=== PATIENT | female | born 1960 | race African-American/Black ===

== ENCOUNTER 2017-09-21 11:09 | Emergency (ER) | payer MEDICAID ==
[~2017-09-21] VITALS: Ht 152.4 cm; Wt 73.9 kg
[2017-09-21 11:18] VITALS: BP 144/102
[2017-09-21] MEDS ORDERED: KETOROLAC TROMETH 60MG/2ML VIAL IM ONE (11:30)
[2017-09-21 11:51] LABS: Basophils # (auto) 0 uL; Basophils % (auto) 0.3 % (0.0-2.0); Eosinophils # (auto) 0.1 uL; Eosinophils % (auto) 0.8 % (0.0-7.0); Hematocrit 44.9 % (36.0-46.0); Hemoglobin 14.9 g/dL (12.2-16.2); Lymphocytes # (auto) 1.5 uL; Lymphocytes % (auto) 16.1 % (10.0-50.0); Mean Corpuscular Hemoglobin 30.6 pg (28.0-32.0); Mean Corpuscular Hgb Conc. 33.1 g/dL (32.0-36.0); Mean Corpuscular Volume 92.4 fL (80.0-100.0); Monocytes # (auto) 0.6 uL; Monocytes % (auto) 6.8 % (0.0-12.0); Nucleated Red Blood Cells % 0.1 %; Platelet Count (auto) 332 10^3/uL (140-450); Red Blood Cells 4.85 10^6/uL (4.0-5.20); Red Cell Distribution Width 13.7 % (11.8-14.3); White Blood Cell 9.2 10^3/uL (4.4-10.8)
[2017-09-21 12:11] LABS: BUN/Creatinine Ratio 18.7; Bilirubin, Total 0.5 mg/dL (0.2-1.0); Potassium 3.6 mmol/L (3.5-5.1); Total Protein 7.8 g/dL (6.4-8.2)
[2017-09-21] MEDS ORDERED: SODIUM CHLORIDE 0.9% 1,000 ML IV ONE (15:44)
== END 2017-09-21 16:44 | disposition left against medical advice (07) ==
LOC: ER 11:09
DX: N20.0 Calculus of kidney (principal); J45.909 Unspecified asthma, uncomplicated
CPT/HCPCS: 36415; 71045; 74176; 80053; 85025; 96372; 99285; J1885

== ENCOUNTER 2017-11-26 22:23 | Inpatient (IN) | payer MEDICAID, OTHER ==
[~2017-11-26] VITALS: Ht 152.4 cm; Wt 75.1 kg
[2017-11-26] MEDS ORDERED: ONDANSETRON HCL 4 MG/2 ML VIAL IV ONE (22:45)
[2017-11-26] MEDS ORDERED: MORPHINE SULFATE 4 MG/ML SYR/VIAL IV ONE ×2 (22:45→23:15)
[2017-11-26] MEDS ORDERED: KETOROLAC TROMETH 30 MG/ML 1ML VIAL IV ONE (22:45)
[2017-11-26] MEDS ORDERED: SODIUM CHLORIDE 0.9% 1,000 ML IV ONE (22:45)
[2017-11-26 23:44] LABS: Basophils # (auto) 0.1 uL; Basophils % (auto) 0.6 % (0.0-2.0); Eosinophils # (auto) 0.3 uL; Eosinophils % (auto) 3.6 % (0.0-7.0); Hematocrit 43.7 % (36.0-46.0); Hemoglobin 14.5 g/dL (12.2-16.2); Lymphocytes # (auto) 3.7 uL; Lymphocytes % (auto) 43.2 % (10.0-50.0); Mean Corpuscular Hemoglobin 30.4 pg (28.0-32.0); Mean Corpuscular Hgb Conc. 33.1 g/dL (32.0-36.0); Mean Corpuscular Volume 91.7 fL (80.0-100.0); Monocytes # (auto) 0.7 uL; Monocytes % (auto) 8.1 % (0.0-12.0); Neutrophils # (auto) 3.8 uL; Neutrophils % (auto) 44.5 % (37.0-80.0); Nucleated Red Blood Cells % 0.1 %; Platelet Count (auto) 322 10^3/uL (140-450); Red Blood Cells 4.77 10^6/uL (4.0-5.20); Red Cell Distribution Width 13.7 % (11.8-14.3); White Blood Cell 8.6 10^3/uL (4.4-10.8)
[2017-11-26 23:48] LABS: Urine Bacteria NONE SEEN /hpf (None Seen); Urine Blood 2+ /uL (Negative); Urine Budding Yeast FEW /hpf (None Seen); Urine Mucus FEW (None Seen); Urine Specific Gravity 1.023 (1.001-1.035); Urine WBC 3 /hpf (0 - 5)
[2017-11-26 23:57] LABS: Alanine Aminotransferase 33 U/L (13-56); Albumin 3.9 g/dL (3.4-5.0); Anion Gap 9 (5-15); Aspartate Aminotransferase 23 U/L (15-37); BUN/Creatinine Ratio 20.9; Blood Urea Nitrogen 18 mg/dL (7-18); Calcium 8.8 mg/dL (8.5-10.1); Carbon Dioxide 21 mmol/L (21-32); Chloride 109 mmol/L (98-107); GFR African American 88 mL/min; GFR Non-African American 73 mL/min; Glucose 125 mg/dL (74-106); Magnesium 2.3 mg/dL (1.6-2.6); Potassium 3.9 mmol/L (3.5-5.1); Sodium 139 mmol/L (136-145)
[2017-11-27] MEDS ORDERED: MEPERIDINE HCL (50 MG/ML) 1 ML VIAL IV ONE
[2017-11-27 00:03] LABS: Alkaline Phosphatase 83 U/L (45-117); Bilirubin, Total 0.4 mg/dL (0.2-1.0)
[2017-11-27] MEDS ORDERED: TAMSULOSIN HYDROCHLORIDE 0.4 MG CAP PO ONE (04:00)
[2017-11-27] MEDS ORDERED: SODIUM CHLORIDE 0.9% 500 ML IV ONE (04:00)
[2017-11-27] MEDS ORDERED: TEMAZEPAM 15 MG CAP PO PRN (04:00)
[2017-11-27] MEDS ORDERED: ACETAMINOPHEN 325 MG TAB PO PRN (04:00)
[2017-11-27] MEDS: SODIUM CHLORIDE 0.9% 1,000 ML IV SCH ×2 (04:00→16:56)
[2017-11-27] MEDS: cefTRIAXone 1GM/10ml IVPUSH 10 ML IV SCH (08:28)
[2017-11-27] MEDS: HYDROcodone-ACET 5/325MG TAB PO PRN ×2 (08:55→18:24)
[2017-11-27] MEDS: ENOXAPARIN SOD 40 MG/0.4 ML SYRINGE SC SCH (10:09)
[2017-11-27] MEDS: FAMOTIDINE 20 MG TAB PO SCH ×2 (10:09→22:00)
[2017-11-27 14:17] LABS: INR 0.97 (0.9-1.15); Partial Thromboplastin Time 30.3 sec (22.64-33.71); Prothrombin Time 10.6 sec (9.37-12.3)
[2017-11-27] MEDS: KETOROLAC TROMETH 30 MG/ML 1ML VIAL IV PRN (16:53)
[2017-11-27] MEDS: MORPHINE SULFATE 4 MG/ML SYR/VIAL IV PRN (21:00)
[2017-11-27 22:00] VITALS: BP 118/66
[2017-11-28] MEDS: HYDROcodone-ACET 5/325MG TAB PO PRN ×3 (01:20→22:36)
[2017-11-28] MEDS: MORPHINE SULFATE 4 MG/ML SYR/VIAL IV PRN ×2 (01:29→07:24)
[2017-11-28 05:30] VITALS: BP 96/55
[2017-11-28] MEDS: SODIUM CHLORIDE 0.9% 1,000 ML IV SCH ×2 (06:11→16:46)
[2017-11-28 07:00] LABS: Basophils # (auto) 0 uL; Basophils % (auto) 0.5 % (0.0-2.0); Eosinophils # (auto) 0.1 uL; Eosinophils % (auto) 1.5 % (0.0-7.0); Hematocrit 37.9 % (36.0-46.0); Hemoglobin 12.4 g/dL (12.2-16.2); Lymphocytes # (auto) 2.2 uL; Lymphocytes % (auto) 22.5 % (10.0-50.0); Mean Corpuscular Hemoglobin 30.4 pg (28.0-32.0); Mean Corpuscular Hgb Conc. 32.8 g/dL (32.0-36.0); Mean Corpuscular Volume 92.9 fL (80.0-100.0); Monocytes % (auto) 9.9 % (0.0-12.0); Neutrophils # (auto) 6.4 uL; Neutrophils % (auto) 65.6 % (37.0-80.0); Nucleated Red Blood Cells % 0.1 %; Platelet Count (auto) 243 10^3/uL (140-450); Red Blood Cells 4.08 10^6/uL (4.0-5.20); Red Cell Distribution Width 13.8 % (11.8-14.3); White Blood Cell 9.8 10^3/uL (4.4-10.8)
[2017-11-28 07:19] LABS: Albumin 3.1 g/dL (3.4-5.0); BUN/Creatinine Ratio 14.6; Bilirubin, Total 0.4 mg/dL (0.2-1.0); Calcium 7.7 mg/dL (8.5-10.1); Total Protein 6.4 g/dL (6.4-8.2)
[2017-11-28] MEDS: cefTRIAXone 1GM/10ml IVPUSH 10 ML IV SCH (08:54)
[2017-11-28 09:00] VITALS: BP 135/76
[2017-11-28] MEDS: FAMOTIDINE 20 MG TAB PO SCH ×2 (09:32→22:35)
[2017-11-28] MEDS: ENOXAPARIN SOD 40 MG/0.4 ML SYRINGE SC SCH (09:32)
[2017-11-28] MEDS: KETOROLAC TROMETH 30 MG/ML 1ML VIAL IV PRN ×3 (11:27→23:48)
[2017-11-28 13:00] VITALS: BP_SYST 128; BP_SYST 94; BP_DIAS 64; BP_DIAS 73
[2017-11-28 17:00] VITALS: BP 127/72
[2017-11-28] MEDS: TAMSULOSIN HYDROCHLORIDE 0.4 MG CAP PO SCH (17:53)
[2017-11-28 22:00] VITALS: BP 152/78
[2017-11-28] MEDS: DOCUSATE SOD 100 MG CAP PO PRN (22:35)
[2017-11-28] MEDS ORDERED: MORPHINE SULFATE 4 MG/ML SYR/VIAL IV ONE (23:00)
[2017-11-28] MEDS ORDERED: LACTULOSE 20Gm/30ML SOLN PO ONE (23:00)
[2017-11-29 05:00] VITALS: BP 154/87
[2017-11-29] MEDS: SODIUM CHLORIDE 0.9% 1,000 ML IV SCH ×2 (06:00→17:05)
[2017-11-29 09:00] VITALS: BP 129/76
[2017-11-29] MEDS: FAMOTIDINE 20 MG TAB PO SCH ×2 (09:34→23:10)
[2017-11-29] MEDS: DOCUSATE SOD 100 MG CAP PO PRN ×2 (09:35→23:10)
[2017-11-29] MEDS: ENOXAPARIN SOD 40 MG/0.4 ML SYRINGE SC SCH (09:42)
[2017-11-29] MEDS: HYDROcodone-ACET 5/325MG TAB PO PRN (11:20)
[2017-11-29 13:00] VITALS: BP 128/69
[2017-11-29 17:00] VITALS: BP 123/75
[2017-11-29] MEDS: KETOROLAC TROMETH 30 MG/ML 1ML VIAL IV PRN (17:01)
[2017-11-29] MEDS: TAMSULOSIN HYDROCHLORIDE 0.4 MG CAP PO SCH (17:01)
[2017-11-29 22:00] VITALS: BP 139/83
[2017-11-30] MEDS: KETOROLAC TROMETH 30 MG/ML 1ML VIAL IV PRN ×2 (02:43→13:15)
[2017-11-30] MEDS: HYDROcodone-ACET 5/325MG TAB PO PRN (02:44)
[2017-11-30 05:00] VITALS: BP 130/72
[2017-11-30] MEDS: SODIUM CHLORIDE 0.9% 1,000 ML IV SCH (07:00)
[2017-11-30] MEDS ORDERED: TAM04C PO (09:07)
[2017-11-30] MEDS ORDERED: TRAM50TA2 PO (09:07)
[2017-11-30 09:16] VITALS: BP 130/79
[2017-11-30] MEDS: FAMOTIDINE 20 MG TAB PO SCH (10:28)
[2017-11-30] MEDS: ENOXAPARIN SOD 40 MG/0.4 ML SYRINGE SC SCH (10:29)
[2017-11-30 10:47] LABS: BUN/Creatinine Ratio 12.5; Calcium 8.2 mg/dL (8.5-10.1); Potassium 3.9 mmol/L (3.5-5.1)
[2017-11-30 13:00] VITALS: BP 130/75
== END 2017-11-30 15:17 | disposition home or self-care (01) | DRG 465 ==
LOC: ER 22:25 → OVERFLOW 22:26 → CENTRAL 11-27 13:48
PROVIDERS: ADMIT Nurse Practitioner; ATTEND Internal Medicine
DX: N13.2 Hydronephrosis with renal and ureteral calculous obstruction (principal); N17.9 Acute kidney failure, unspecified; N39.0 Urinary tract infection, site not specified; J45.909 Unspecified asthma, uncomplicated; R19.09 Other intra-abdominal and pelvic swelling, mass and lump; Z87.442 Personal history of urinary calculi
CPT/HCPCS: 36415; 71045; 74018; 74176; 80048; 80053; 81001; 83735; 84484; 85025; 85610; 85730; 93005; 96361; 96374; 96375; 96376; J1885; J2405